=== PATIENT | female | born 1945 | race Caucasian/White ===

== ENCOUNTER → 2020-09-08 12:56 | Outpatient (BNVA) | payer MEDICARE, OTHER, SELFPAY | PROVIDERS: Family Provider Electrodiagnostic Medicine; PCP Electrodiagnostic Medicine; Visit Provider Electrodiagnostic Medicine | DX: R50.9 Fever, unspecified (principal) | CPT/HCPCS: 87635 ==

== ENCOUNTER 2020-12-19 15:01 | Outpatient (CLI) | payer MEDICARE, OTHER, SELFPAY ==
--- NOTE | 2020-12-19 15:14 | USCV_ITS ---
Reed Ayesha Age: 75 Gender: F : 1945 Exam Date: 12/19/2020 15:56 Ordering Phys: Marcus Carrasco DO Technologist: Jennifer Sol Exam Location: [facility] [place] Indication: SOB BP: 131 / 68 HR: 77 Rhythm: Sinus Technical Quality: Technically difficult study MEASUREMENTS (Male / Female) Normal Values 2D ECHO LV Diastolic Diameter PLAX 4.3 cm 4.2 - 5.9 / 3.9 - 5.3 cm LV Systolic Diameter PLAX 4.0 cm LV Chamber Size 4.3 cm IVS Diastolic Thickness 0.5 cm 0.6 - 1.0 / 0.6 - 0.9 cm IVS Systolic Thickness 0.5 cm LVPW Diastolic Thickness 4.4 cm 0.6 - 1.0 / 0.6 - 0.9 cm LVPW Systolic Thickness 1.0 cm RV Chamber Size 2.5 cm LVOT Diameter 2.0 cm LV Ejection Fraction 2D Teich 60.5 % LV Ejection Fraction MOD 2C 60.3 % LV Ejection Fraction 2C AL 62.3 % LA Diameter 4.0 cm LA Width 3.7 cm LA Height 5.5 cm RA Width 3.4 cm RA Height 4.3 cm M-MODE LV Diastolic Diameter MM 5.1 cm 4.2 - 5.9 / 3.9 - 5.3 cm LV Systolic Diameter MM 3.0 cm LV Ejection Fraction MM Teich 72.0 % IVS Diastolic Thickness MM 1.4 cm 0.6 - 1.0 / 0.6 - 0.9 cm IVS Systolic Thickness MM 1.0 cm LVPW Diastolic Thickness MM 1.1 cm 0.6 - 1.0 / 0.6 - 0.9 cm LVPW Systolic Thickness MM 1.3 cm Aortic Annulus Diameter 3.0 cm LA Ao Ratio MM 1.4 MV E Point Septal Separation 0.5 cm DOPPLER AV Peak Velocity 204.0 cm/s LVOT Peak Velocity 122.7 cm/s AV Area Cont Eq vti 2.3 cm squared AV Area Cont Eq pk 1.9 cm squared MV Area PHT 2.6 cm squared Mitral E to A Ratio 1.0 MV E' Velocity 62.5 cm/s Mitral E to MV E' Ratio 10.5 Mitral E to LV E' Lateral Ratio 10.8 Mitral E to LV E' Septal Ratio 10.2 TR Peak Velocity 213.0 cm/s TR Peak Gradient 18.1 mmHg TV Peak E Velocity 85.0 cm/s PV Peak Velocity 69.0 cm/s RV Acceleration Time 0.1 s RV Ejection Time 0.2 s RV AcT/ET 0.4 FINDINGS Left Ventricle Normal left ventricular size, systolic function and wall thickness, with no diagnostic regional wall motion abnormalities. Left ventricular ejection fraction is estimated at 65 %. Normal diastolic function. Right Ventricle Normal right ventricular size and systolic function. Right ventricular systolic pressure 21 mmHg. Right Atrium Normal right atrial size. Right atrial pressure estimated at 3 mmHg. Left Atrium Mildly increased left atrial size. Mitral Valve Mild mitral annular calcification. Thickened mitral valve. No mitral valve stenosis. Trace mitral valve regurgitation. Aortic Valve No aortic valve stenosis. No aortic valve regurgitation. Tricuspid Valve Structurally normal tricuspid valve. No tricuspid valve stenosis. Trace tricuspid valve regurgitation. Pulmonic Valve Pulmonic valve not well visualized. Pericardium No pericardial effusion. Aorta Normal-sized aortic root. Normal-sized inferior vena cava with normal respiratory variation. CONCLUSIONS 1. Normal left ventricular size, systolic function and wall thickness, with no diagnostic regional wall motion abnormalities. Left ventricular ejection fraction is estimated at 65 %. Normal diastolic function. 2. Normal pulmonary artery pressure. 3. No significant valvular abnormality. 4. Mildly increased left atrial size. 5. No prior similar studies to compare. Aishwarya Gordon MD (Electronically Signed) Final Date: 20 December 2020 17:17 S
== END 2020-12-19 15:02 | disposition home or self-care (01) ==
LOC: US 15:04
PROVIDERS: PCP Electrodiagnostic Medicine; Visit Provider Electrodiagnostic Medicine
DX: R06.02 Shortness of breath (principal)
CPT/HCPCS: 93306

== ENCOUNTER 2021-12-12 10:51 | Outpatient (CLI) | payer MEDICARE, OTHER, SELFPAY ==
--- NOTE | 2021-12-12 11:00 | XR_ITS ---
WS: [email or web address] XR knee LT 3V* [id number] REASON FOR EXAM: BILATERAL DEGENERATIVE JOINT DZ/ARTHRITIS FINDINGS: No fracture or focal bone lesion. Moderately severe narrowing of the medial knee joint space with subchondral sclerosis and large brain nal osteophytes. Mild to moderate narrowing of the lateral knee joint space with minimal subchondral sclerosis and moderate marginal osteophytes. Mild medial shift of the femur. Moderate narrowing of the patellofemoral joint space with subchondral sclerosis and large marginal os teophytes from the patella and femur. XR/XR knee LT 3V* [id number] IMPRESSION: Significant osteoarthritis of the left knee which does not appear to have parks ed significantly compared to 07/17/2017.
--- NOTE | 2021-12-12 11:00 | XR_ITS ---
WS: [email or web address] XR knee RT 3V* [id number] REASON FOR EXAM: BILATERAL KNEES DEGENERATIVE JOINT DZ FINDINGS: No fracture or focal bone lesion. Moderate to severe narrowing of the right medial knee joint space with subchondral sclerosis and larg e marginal osteophytes. Mild narrowing of the right lateral knee joint space with moderate marginal osteophytes. There appear s to be calcification in the lateral meniscus. Elongation of the tibial eminences. Moderate narrowing of the right patellofemoral joint space with subchondral sclerosis and marginal os teophytes. XR/XR knee RT 3V* [id number] IMPRESSION: Osteoarthritis of the 3 right knee joint spaces, most severely the medial joint space. 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
== END 2021-12-12 10:52 | disposition home or self-care (01) ==
LOC: RAD 10:58
PROVIDERS: PCP Electrodiagnostic Medicine; Visit Provider Electrodiagnostic Medicine
DX: M17.0 Bilateral primary osteoarthritis of knee (principal)
CPT/HCPCS: 73562

== ENCOUNTER 2022-04-06 07:11 | Outpatient (CLI) | payer MEDICARE, OTHER, SELFPAY ==
--- NOTE | 2022-04-06 07:21 | MM_ITS ---
WS: [email or web address] BILATERAL SCREENING 3D TOMOSYNTHESIS DIGITAL MAMMOGRAM WITH CAD HISTORY: SCREENING COMPARISON: 11/27/2018 Bilateral CC and MLO views submitted. Computer aided detection analyzed. Breast composition: There are scattered areas of fibroglandular density. No suspicious masses, microc alcifications or architectural distortion. Asymmetries in the upper outer quadrants of each breast. T hese were present on the prior study from 2018 with no progression. Additional benign calcifications. MM/[place] [id number] IMPRESSION: BI-RADS: 2-Benign FOLLOW UP: 1 Year Follow-up
== END 2022-04-06 07:12 | disposition home or self-care (01) ==
LOC: RAD 07:11
PROVIDERS: PCP Electrodiagnostic Medicine; Visit Provider Electrodiagnostic Medicine
DX: Z12.31 Encounter for screening mammogram for malignant neoplasm of breast (principal)
CPT/HCPCS: 77063; 77067

== ENCOUNTER 2023-06-20 12:58 | Outpatient (CLI) | payer MEDICARE, SELFPAY ==
--- NOTE | 2023-06-20 13:21 | MM_ITS ---
WS: [email or web address] SCREENING DIGITAL BREAST TOMOSYNTHESIS MAMMOGRAM WITH CAD HISTORY: SCREENING COMPARISON: 04/06/2022 Bilateral CC and MLO with tomosynthesis and synthetic mammography submitted. Computer aided detection analyzed. Breast composition: There are scattered areas of fibroglandular density. Interval development of calc ifications in the posterior LEFT breast at 6:00. Focal cluster of calcifications with additional more subtle calcifications identified in the adjacent area. There are benign calcifications otherwise wit hin each breast. No soft tissue mass. MM/[place] [id number] IMPRESSION: BI-RADS: 0-Incomplete: Need additional imaging evaluation FOLLOW UP: Need Additional Imaging LEFT BREAST: Magnification views of suspicious calcification CC and MLO. Carlos Lewis
== END 2023-06-20 12:59 | disposition home or self-care (01) ==
PROVIDERS: PCP Electrodiagnostic Medicine; Visit Provider Electrodiagnostic Medicine
DX: Z12.31 Encounter for screening mammogram for malignant neoplasm of breast (principal)
CPT/HCPCS: 77063; 77067

== ENCOUNTER 2023-08-13 10:00 | Outpatient (CLI) | payer MEDICARE, OTHER, SELFPAY ==
--- NOTE | 2023-08-13 10:17 | MM_ITS ---
WS: [email or web address] ADDITIONAL VIEWS LEFT DIGITAL TOMOSYNTHESIS MAMMOGRAPHY WITH CAD. HISTORY: Additional views recommended from screening exam. COMPARISON: 06/20/2023 and 04/06/2022 Technique: Magnification views LEFT CC and ML. Breast composition: There are scattered areas of fibroglandular density. Cluster of calcifications pe rsist in the inferior breast. These need to be further evaluated by stereotactic biopsy. It may be di fficult to perform a biopsy due to their very superficial location. IMPRESSION: MM/[place] [id number] BI-RADS: 4-Suspicious Finding-Biopsy Should Be Considered FOLLOW UP: Stereotactic biopsy recommended
== END 2023-08-13 10:01 | disposition home or self-care (01) ==
PROVIDERS: PCP Electrodiagnostic Medicine; Visit Provider Electrodiagnostic Medicine
DX: R92.8 Other abnormal and inconclusive findings on diagnostic imaging of breast (principal)
CPT/HCPCS: 77061; G0279

== ENCOUNTER 2023-09-24 12:15 | Outpatient (CLI) | payer MEDICARE, OTHER, SELFPAY ==
--- NOTE | 2023-09-24 12:24 | MM_ITS ---
WS: [email or web address] Stereotactic biopsy could not be performed due to superficial location of the calcifications. Recomme nd breast surgery consultation for needle localization with surgical resection.
== END 2023-09-24 12:16 | disposition home or self-care (01) ==
PROVIDERS: PCP Electrodiagnostic Medicine; Visit Provider Electrodiagnostic Medicine
DX: R92.8 Other abnormal and inconclusive findings on diagnostic imaging of breast (principal); Z53.8 Procedure and treatment not carried out for other reasons
CPT/HCPCS: 19081

== ENCOUNTER → 2025-11-03 10:02 | Outpatient (BNVA) | payer MEDICARE, OTHER, SELFPAY | PROVIDERS: PCP Electrodiagnostic Medicine; Visit Provider Student in an Organized Health Care Education/Training Program | DX: M25.511 Pain in right shoulder (principal); M25.512 Pain in left shoulder; S49.91XA Unspecified injury of right shoulder and upper arm, initial encounter; X58.XXXA Exposure to other specified factors, initial encounter | CPT/HCPCS: 73030; 99203 ==

== ENCOUNTER 2025-11-17 10:39 | Outpatient (CLI) | payer MEDICARE, OTHER, SELFPAY ==
--- NOTE | 2025-11-17 11:00 | MR_ITS ---
WS: [email or web address] MRI RIGHT SHOULDER HISTORY: rule out rotator cuff tear COMPARISON: Shoulder radiograph 11/03/2025 TECHNIQUE: Multiplanar sequences of the shoulder joint are submitted. Moderate AC joint arthritis. Mild synovial thickening with increased T2 signal surrounding the AC joint. Mild hypertrophic osteophytes in the distal clavicle. Humeral head is high riding abutting the undersurface of the acromion. No os acromion. Biceps tendon is absent from the bicipital groove. Complete tear of the supraspinatus tendon with retraction to the medial humeral head. The distal retracted segment of the supraspinatus tendon is frayed with increased T2 signal. Moderate atrophy of the supraspinatus muscle. Mild atrophy of the infraspinatus and subscapularis muscles. Infraspinatus tendon is also torn and retracted. Small caliber subscapularis tendon. Central interstitial tear in the subscapularis tendon. Additional tendinopathy in the distal tendon. Small joint effusion. No labral tear. No fracture. Absent biceps tendon in the rotator cuff interval. There is edema in the rotator cuff interval also. MR/MR shoulder RT wo con* [id number] IMPRESSION: 1. Complete tear supraspinatus tendon with retraction to the medial humeral he ad. There is at least 2 cm of the retracted tendon which demonstrates surface f raying. 2. Complete tear of the distal infraspinatus tendon with retraction. 3. Small caliber subscapularis tendon with a central interstitial tear. Additi onal tendinopathy distally. 4. Moderate atrophy of the supraspinatus muscle. 5. Mild atrophy infraspinatus and subscapularis muscles. 6. Moderate AC joint arthritis with synovitis. 7. Absent biceps tendon at the bicipital groove.
== END 2025-11-17 10:40 | disposition home or self-care (01) ==
LOC: RAD 10:44
PROVIDERS: PCP Electrodiagnostic Medicine; Visit Provider Student in an Organized Health Care Education/Training Program
DX: S49.91XA Unspecified injury of right shoulder and upper arm, initial encounter (principal); X58.XXXA Exposure to other specified factors, initial encounter; M19.011 Primary osteoarthritis, right shoulder
CPT/HCPCS: 73221